=== PATIENT | female | born 1935 | race Caucasian/White ===

== ENCOUNTER 2016-03-18 11:35 | Emergency (ER) | payer OTHER ==
[~2016-03-18] VITALS: Ht 167.6 cm; Wt 65.9 kg
[~2016-03-18 11:35] MED LIST: AMLODIPINE PO; ATENOLOL100 MG PO; AZITHROMYCIN250 MG1 PO; B COMPLETE1 EACH PO; CHOLESTYRAMINE L4 GM PO; CILOSTAZOL50 MG PO; CLIMARA PRO PA1 EACH TD; CLIMARA0.05 MG TP; CLONAZEPAM0.5 MG PO; DURAGESIC1 EAC1 TD; FIORICET 50-321 EAC1 PO; FLOVENT 11120 INHALA IH; GABAPENTIN100 MG PO; GLUCOPHAGE500 MG PO; HYDRALAZINE HCL50 MG PO; HYOSCYAMINE0.125 M2 PO; LOSARTAN POTAS100 MG PO; METAXALONE800 MG PO; METFORMIN HCL500 MG PO; METHYLDOPA500 MG PO; NEXIUM20 MG PO; NEXIUM40 MG PO; OMEPRAZOLE40 M1 PO; PERCOCET 5/31 TABLET PO; PRILOSEC40 MG PO; RANITIDINE HCL300 MG PO; SPIRONOLACTONE25 MG PO; TRAMADOL PO; Tenormin PO; VENTOLIN HFA18 GM IH; VYTORIN PO; WELCHOL3.75 GM PO; ZOFRAN4 MG PO
[2016-03-18 11:53] VITALS: BP 135/75
[2016-03-18 12:46] LABS: BASOPHIL COUNT 0.1 K/uL (0-0.1); EOSINOPHIL (%) 2.7 % (0-5); EOSINOPHIL COUNT 0.2 K/uL (0-0.3); HEMATOCRIT 32.6 % (36.0-46.0); IMMATURE GRANULOCYTE (%) 0.4 % (0.0-0.7); IMMATURE GRANULOCYTE COUNT 0.3 K/uL; LYMPHOCYTE COUNT 1.7 K/uL (1.0-2.8); MCHC 31.9 G/DL (30.0-36.0); MCV 81.5 FL (83-99); MEAN PLAT.VOLUME 10.3 uM^3 (9.5-12.4); MONOCYTE (%) 6.7 % (3-12); MONOCYTE COUNT 0.5 K/uL (0-0.8); NEUTROPHIL (%) 68.2 % (45-76); NEUTROPHIL COUNT 5.4 K/uL (1.8-6.4); PLATELET COUNT 462 K/uL (156-360); RBC DIS.WIDTH-CV 14.5 % (11.8-14.6); RBC DIS.WIDTH-SD 41.7 % (39-53); WHITE BLOOD COUNT 7.9 K/uL (4.1-10.2)
[2016-03-18 12:55] LABS: CHLORIDE 107 mEq/L (99-109); POTASSIUM 4.8 mEq/L (3.7-5.4); SODIUM 134 mEq/L (136-147)
[2016-03-18 12:56] LABS: GLUCOSE 111 mg/dL (70-99)
[2016-03-18 12:58] LABS: ANION GAP 10 MEQ/L (2-14)
[2016-03-18 13:00] LABS: GFR ESTIMATE (CALCULATED) 26 mL/min/
[2016-03-18 13:01] LABS: UREA NITROGEN (BUN) 26 mg/dL (9-23)
== END 2016-03-18 17:38 | disposition home or self-care (01) ==
LOC: EME 11:35
PROVIDERS: Emergency Medicine
DX: E86.0 Dehydration (principal); S09.90XA Unspecified injury of head, initial encounter; M54.5 Low back pain; W18.30XA Fall on same level, unspecified, initial encounter; Y92.231 Patient bathroom in hospital as the place of occurrence of the external cause; Z79.82 Long term (current) use of aspirin; G89.29 Other chronic pain; Z79.891 Long term (current) use of opiate analgesic; I10 Essential (primary) hypertension; E11.9 Type 2 diabetes mellitus without complications; J45.909 Unspecified asthma, uncomplicated
CPT/HCPCS: 70450; 72100; 72131; 72192; 80048 91; 85025 91; 93005; 99281; 99285; J7030

== ENCOUNTER 2016-06-28 13:41 | Observation (INO) | payer OTHER ==
[~2016-06-28] VITALS: Ht 167.6 cm; Wt 74.1 kg
[2016-06-28 14:35] LABS: EOSINOPHIL (%) 1.1 % (0-5); EOSINOPHIL COUNT 0.1 K/uL (0-0.3); HEMATOCRIT 32.2 % (36.0-46.0); IMMATURE GRANULOCYTE (%) 0.3 % (0.0-0.7); INSTRUMENT ABS NEUTROPHIL CT 4.6 K/uL; LYMPHOCYTE COUNT 1.7 K/uL (1.0-2.8); MCHC 31.7 G/DL (30.0-36.0); MCV 85.2 FL (83-99); MEAN PLAT.VOLUME 10.3 uM^3 (9.5-12.4); MONOCYTE COUNT 0.8 K/uL (0-0.8); NEUTROPHIL (%) 64.1 % (45-76); NEUTROPHIL COUNT 4.6 K/uL (1.8-6.4); PLATELET COUNT 271 K/uL (156-360); RBC DIS.WIDTH-CV 13.5 % (11.8-14.6); RBC DIS.WIDTH-SD 42.2 % (39-53); RED BLOOD COUNT 3.78 M/uL (3.80-5.20); WHITE BLOOD COUNT 7.2 K/uL (4.1-10.2)
[2016-06-28 14:43] LABS: CHLORIDE 106 mEq/L (99-109); POTASSIUM 4.1 mEq/L (3.7-5.4); SODIUM 138 mEq/L (136-147)
[2016-06-28 14:45] LABS: GLUCOSE 104 mg/dL (70-99)
[2016-06-28 14:47] LABS: ANION GAP 8 MEQ/L (2-14)
[2016-06-28 14:48] LABS: D-DIMER ELISA 2.37 mg/L FEU (< 0.57); PROTHROMBIN TIME 10.4 (9.2-11.2); PTT 30.7 (25-32)
[2016-06-28 14:49] LABS: GFR ESTIMATE (CALCULATED) 27 mL/min/
[2016-06-28 14:50] LABS: UREA NITROGEN (BUN) 24 mg/dL (9-23)
[2016-06-28 14:57] LABS: TROP-I INTERPRETATION NEGATIVE; TROPONIN-I < 0.01 ng/mL (0.0-0.30)
[2016-06-28] MEDS ORDERED: ZINC-1566 MG PO (17:59)
[2016-06-28] MEDS ORDERED: LOSARTAN POTASS50 MG PO (18:02)
[2016-06-28] MEDS ORDERED: BYSTOLIC10 MG PO (18:03)
[2016-06-28] MEDS ORDERED: KENALOG,ARISTOC80 GM TP (18:04)
[2016-06-28] MEDS ORDERED: AMBIEN5 MG PO (18:05)
[2016-06-28] MEDS ORDERED: IRON325 MG PO (18:06)
[2016-06-28] MEDS ORDERED: PROTONIX40 MG PO (18:07)
[2016-06-28] MEDS ORDERED: 24 HOUR ALLER15.8 ML BOTH NARES (18:11)
[2016-06-28 21:17] LABS: CREATINE KINASE 26 IU/L (1-294); TOTAL CK 26 IU/L (1-294)
[2016-06-28 21:23] LABS: CK-MB 0.8 ng/mL (0.0-4.9)
[2016-06-28 21:29] LABS: TROP-I INTERPRETATION NEGATIVE; TROPONIN-I < 0.01 ng/mL (0.0-0.30)
[2016-06-28 21:50] VITALS: BP 190/74
[2016-06-28 22:45] VITALS: BP 186/88
[2016-06-29 00:30] VITALS: BP 172/72
[2016-06-29 04:13] VITALS: BP 156/89
[2016-06-29 06:23] LABS: HEMATOCRIT 32.8 % (36.0-46.0); MCH 26.8 PG (29.0-34.0); MCHC 31.7 G/DL (30.0-36.0); MCV 84.5 FL (83-99); MEAN PLAT.VOLUME 10.5 uM^3 (9.5-12.4); PLATELET COUNT 265 K/uL (156-360); RBC DIS.WIDTH-CV 13.4 % (11.8-14.6); RBC DIS.WIDTH-SD 41.9 % (39-53); RED BLOOD COUNT 3.88 M/uL (3.80-5.20); WHITE BLOOD COUNT 5.2 K/uL (4.1-10.2)
[2016-06-29 08:30] LABS: TROP-I INTERPRETATION NEGATIVE; TROPONIN-I < 0.01 ng/mL (0.0-0.30)
[2016-06-29 08:43] VITALS: BP 143/66
[2016-06-29 12:37] VITALS: BP 123/59
[2016-06-29] MEDS ORDERED: NITROSTAT0.4 MG SL (12:49)
[2016-06-29] MEDS ORDERED: ASPIR-LOW81 MG PO (12:49)
== END 2016-06-29 14:18 | disposition home or self-care (01) ==
LOC: EME 13:41 → 5WEST 20:07 → EDOF 20:07 → 5WEST 21:05
PROVIDERS: Emergency Medicine; Hospitalist; Internal Medicine Nephrology
DX: R07.89 Other chest pain (principal); R94.31 Abnormal electrocardiogram [ECG] [EKG]; R10.13 Epigastric pain; I73.9 Peripheral vascular disease, unspecified; I12.9 Hypertensive chronic kidney disease with stage 1 through stage 4 chronic kidney disease, or unspecified chronic kidney disease; N18.9 Chronic kidney disease, unspecified; D64.9 Anemia, unspecified; K44.9 Diaphragmatic hernia without obstruction or gangrene; K21.9 Gastro-esophageal reflux disease without esophagitis; E11.9 Type 2 diabetes mellitus without complications; J45.909 Unspecified asthma, uncomplicated; Z85.51 Personal history of malignant neoplasm of bladder; G43.909 Migraine, unspecified, not intractable, without status migrainosus
CPT/HCPCS: 71010; 78582; 80048; 82550 91; 82553; 84484; 85025; 85027; 85379; 85610; 85730; 93005; 99202; 99281; 99285; G0378; J1644

== ENCOUNTER 2016-08-05 14:27 | Inpatient (IN) | payer OTHER ==
[~2016-08-05] VITALS: Ht 167.6 cm; Wt 71.4 kg
[~2016-08-05 14:27] MED LIST changes: +24 HOUR ALLER15.8 ML BOTH NARES; +AMBIEN5 MG PO; +ASPIR-LOW81 MG PO; +BYSTOLIC10 MG PO; +IRON325 MG PO; +KENALOG,ARISTOC80 GM TP; +LOSARTAN POTASS50 MG PO; +NITROSTAT0.4 MG SL; +PROTONIX40 MG PO; +ZINC-1566 MG PO
[2016-08-05 15:13] LABS: HEMATOCRIT 29.1 % (36.0-46.0); MCH 26.6 PG (29.0-34.0); MCV 83.4 FL (83-99); MEAN PLAT.VOLUME 9.4 uM^3 (9.5-12.4); PLATELET COUNT 466 K/uL (156-360); RBC DIS.WIDTH-CV 13.4 % (11.8-14.6); RBC DIS.WIDTH-SD 41.1 % (39-53); RED BLOOD COUNT 3.49 M/uL (3.80-5.20); WHITE BLOOD COUNT 14.4 K/uL (4.1-10.2)
[2016-08-05 15:21] LABS: CHLORIDE 103 mEq/L (99-109); POTASSIUM 4.1 mEq/L (3.7-5.4)
[2016-08-05 15:23] LABS: GLUCOSE 280 mg/dL (70-99)
[2016-08-05 15:24] LABS: ANION GAP 9 MEQ/L (2-14)
[2016-08-05 15:27] LABS: GFR ESTIMATE (CALCULATED) 21 mL/min/; UREA NITROGEN (BUN) 30 mg/dL (9-23)
[2016-08-05 15:33] LABS: TROP-I INTERPRETATION NEGATIVE; TROPONIN-I < 0.01 ng/mL (0.0-0.30)
[2016-08-05 15:51] LABS: SODIUM 131 mEq/L (136-147)
[2016-08-05] MEDS ORDERED: LO-DOSE ASPIRIN81 M2 PO (19:23)
[2016-08-05] MEDS ORDERED: ZINC50 M1 PO (19:24)
[2016-08-05] MEDS ORDERED: ZINC30 MG PO (19:25)
[2016-08-05] MEDS ORDERED: CYANOCOBAL1000 MCG/2 IM (19:27)
[2016-08-05] MEDS ORDERED: ALBUTEROL2.5 MG/3 M IH (19:33)
[2016-08-05] MEDS ORDERED: hydrocodone PO (19:35)
[2016-08-05] MEDS ORDERED: VALACYCLOVIR1000 MG PO (19:37)
[2016-08-05 23:02] VITALS: BP 121/60
[2016-08-05 23:58] LABS: ADD MIUA? YES; BILIRUBIN NEGATIVE; BLOOD NEGATIVE; COLOR YELLOW ((YELLOW)); GLUCOSE (STRIP) NEGATIVE; KETONES NEGATIVE; LEUKOCYTES NEGATIVE; NITRITE NEGATIVE; PROTEIN (STRIP) NEGATIVE; SPECIFIC GRAVITY 1.004 (1.000-1.030); UROBILINOGEN 0.2 MG/DL (0.2-1.0)
[2016-08-06 00:08] LABS: BACTERIA RARE /HPF; EPITHELIAL CELLS 1+ /HPF; MUCUS TRACE /LPF; RED BLOOD CELLS 0-5 /HPF (0-5); UCUL ADDED? NO; WHITE BLOOD CELLS 0-5 /HPF (0-5)
[2016-08-06 04:41] VITALS: BP 125/58
[2016-08-06 06:08] LABS: EOSINOPHIL (%) 1.2 % (0-5); EOSINOPHIL COUNT 0.1 K/uL (0-0.3); HEMATOCRIT 26.2 % (36.0-46.0); IMMATURE GRANULOCYTE (%) 0.4 % (0.0-0.7); LYMPHOCYTE COUNT 1.9 K/uL (1.0-2.8); MCH 27.2 PG (29.0-34.0); MCHC 32.4 G/DL (30.0-36.0); MEAN PLAT.VOLUME 9.2 uM^3 (9.5-12.4); MONOCYTE COUNT 0.7 K/uL (0-0.8); PLATELET COUNT 415 K/uL (156-360); RBC DIS.WIDTH-CV 13.5 % (11.8-14.6); RBC DIS.WIDTH-SD 41.3 % (39-53); RED BLOOD COUNT 3.12 M/uL (3.80-5.20); WHITE BLOOD COUNT 7.8 K/uL (4.1-10.2)
[2016-08-06 06:33] LABS: ANION GAP 8 MEQ/L (2-14); CHLORIDE 107 MEQ/L (99-109); GFR ESTIMATE (CALCULATED) 26 mL/min/; POTASSIUM 4.3 MEQ/L (3.7-5.4); SAMPLE HEMOLYSIS CHECK 0; SAMPLE ICTERIC CHECK 0; SAMPLE LIPEMIA CHECK 0; SODIUM 137 MEQ/L (136-147); UREA NITROGEN (BUN) 29 mg/dL (9-23)
[2016-08-06 06:38] LABS: GLUCOSE 103 mg/dL (70-99)
[2016-08-06 07:05] LABS: ERTH.SED.RATE 58 MM/HR (0-30)
[2016-08-06 07:51] LABS: INTERNAL CONTROL VALID? YES
[2016-08-06 08:01] VITALS: BP 121/59
[2016-08-06 09:48] LABS: D-DIMER ELISA > 4.00 mg/L FEU (< 0.57)
[2016-08-06 10:35] LABS: TROP-I INTERPRETATION NEGATIVE; TROPONIN-I < 0.01 ng/mL (0.0-0.30)
[2016-08-06 16:18] VITALS: BP 124/62
[2016-08-06 20:00] VITALS: BP 120/58
[2016-08-07] VITALS (8 sets, daily range): BP systolic 80–131; BP diastolic 43–84
[2016-08-07 06:03] LABS: HEMATOCRIT 26.2 % (36.0-46.0); MCH 27.4 PG (29.0-34.0); MCHC 32.1 G/DL (30.0-36.0); MCV 85.3 FL (83-99); MEAN PLAT.VOLUME 9.5 uM^3 (9.5-12.4); PLATELET COUNT 444 K/uL (156-360); RBC DIS.WIDTH-CV 13.6 % (11.8-14.6); RED BLOOD COUNT 3.07 M/uL (3.80-5.20); WHITE BLOOD COUNT 7.6 K/uL (4.1-10.2)
[2016-08-07 06:39] LABS: ANION GAP 7 MEQ/L (2-14); CHLORIDE 108 MEQ/L (99-109); GFR ESTIMATE (CALCULATED) 27 mL/min/; GLUCOSE 104 mg/dL (70-99); POTASSIUM 4.4 MEQ/L (3.7-5.4); SAMPLE HEMOLYSIS CHECK 0; SAMPLE ICTERIC CHECK 0; SAMPLE LIPEMIA CHECK 0; SODIUM 137 MEQ/L (136-147); UREA NITROGEN (BUN) 28 mg/dL (9-23)
[2016-08-07] MEDS ORDERED: VALIUM2 MG PO (11:08)
[2016-08-07] MEDS ORDERED: ALBUTEROL2.5 MG/3 M IH (11:08)
[2016-08-07] MEDS ORDERED: DOXYCYCLINE HY100 MG PO (11:08)
[2016-08-07] MEDS ORDERED: VENTOLIN HFA18 GM IH (11:08)
[2016-08-07 13:10] LABS: HEMATOCRIT 25.7 % (36.0-46.0); MCV 84.8 FL (83-99)
[2016-08-07 16:51] LABS: HEMATOCRIT 24.4 % (36.0-46.0); MCV 85.3 FL (83-99)
[2016-08-08 00:31] LABS: HEMATOCRIT 24.6 % (36.0-46.0)
[2016-08-08 03:36] VITALS: BP 103/61
[2016-08-08 06:11] LABS: HEMATOCRIT 25.1 % (36.0-46.0); MCH 26.9 PG (29.0-34.0); MCHC 31.5 G/DL (30.0-36.0); MCV 85.4 FL (83-99); MEAN PLAT.VOLUME 9.3 uM^3 (9.5-12.4); PLATELET COUNT 448 K/uL (156-360); RBC DIS.WIDTH-CV 13.5 % (11.8-14.6); RBC DIS.WIDTH-SD 41.5 % (39-53); RED BLOOD COUNT 2.94 M/uL (3.80-5.20); WHITE BLOOD COUNT 6.2 K/uL (4.1-10.2)
[2016-08-08 06:42] LABS: ANION GAP 8 MEQ/L (2-14); CHLORIDE 111 MEQ/L (99-109); GFR ESTIMATE (CALCULATED) 26 mL/min/; GLUCOSE 107 mg/dL (70-99); IRON 14 MCG/DL (35-150); POTASSIUM 5.1 MEQ/L (3.7-5.4); SAMPLE HEMOLYSIS CHECK 0; SAMPLE ICTERIC CHECK 0; SAMPLE LIPEMIA CHECK 0; SODIUM 140 MEQ/L (136-147); UREA NITROGEN (BUN) 26 mg/dL (9-23)
[2016-08-08 07:48] LABS: FERRITIN 179 NG/ML (10-291)
[2016-08-08 07:50] VITALS: BP 125/60
[2016-08-08 11:03] LABS: HEMATOCRIT 26.5 % (36.0-46.0)
[2016-08-08 11:16] VITALS: BP 110/53
[2016-08-08] MEDS ORDERED: ALDOMET250 MG PO (13:29)
== END 2016-08-08 15:26 | disposition home health service (06) | DRG 194 ==
LOC: EME 14:27 → 5SOUTH 20:23 → EDOF 20:23 → 5SOUTH 20:23
PROVIDERS: Hospitalist; Physician Assistant Medical
DX: J13 Pneumonia due to Streptococcus pneumoniae (principal); J90 Pleural effusion, not elsewhere classified; N17.9 Acute kidney failure, unspecified; I95.9 Hypotension, unspecified; E11.22 Type 2 diabetes mellitus with diabetic chronic kidney disease; B02.9 Zoster without complications; D64.9 Anemia, unspecified; E86.0 Dehydration; N18.3 Chronic kidney disease, stage 3 (moderate); R71.0 Precipitous drop in hematocrit; F41.9 Anxiety disorder, unspecified; G44.89 Other headache syndrome; I12.9 Hypertensive chronic kidney disease with stage 1 through stage 4 chronic kidney disease, or unspecified chronic kidney disease; I20.9 Angina pectoris, unspecified; I73.9 Peripheral vascular disease, unspecified; J45.909 Unspecified asthma, uncomplicated; J98.11 Atelectasis; K21.9 Gastro-esophageal reflux disease without esophagitis; Z82.49 Family history of ischemic heart disease and other diseases of the circulatory system; Z85.51 Personal history of malignant neoplasm of bladder; Z85.828 Personal history of other malignant neoplasm of skin; G89.29 Other chronic pain; Z63.4 Disappearance and death of family member; R00.0 Tachycardia, unspecified
CPT/HCPCS: 36415; 70450; 71020; 78582; 80048; 80053; 81003; 82272; 82607; 82728; 82746; 83540; 84466; 84484; 84630 90; 85014; 85018; 85025; 85027; 85379; 85651; 87040; 87070; 87205; 87449; 93005; 93970; 94640; 94640 76; 94667; 94668; 99202; 99281; 99285; A9540; A9567; J0456; J0696; J1644; J7030; J7050

== ENCOUNTER 2017-02-06 08:35 | Emergency (ER) | payer OTHER ==
[~2017-02-06] VITALS: Ht 167.6 cm; Wt 71.5 kg
[~2017-02-06 08:35] MED LIST changes: +ALBUTEROL2.5 MG/3 M IH; +ALDOMET250 MG PO; +CYANOCOBAL1000 MCG/2 IM; +DOXYCYCLINE HY100 MG PO; +LO-DOSE ASPIRIN81 M2 PO; +VALACYCLOVIR1000 MG PO; +VALIUM2 MG PO; +ZINC30 MG PO; +ZINC50 M1 PO; +hydrocodone PO
[2017-02-06 09:38] LABS: EOSINOPHIL (%) 2.6 % (0-5); EOSINOPHIL COUNT 0.2 K/uL (0-0.3); HEMATOCRIT 37.1 % (36.0-46.0); IMMATURE GRANULOCYTE (%) 0.4 % (0.0-0.7); INSTRUMENT ABS NEUTROPHIL CT 5.1 K/uL; LYMPHOCYTE COUNT 1.1 K/uL (1.0-2.8); MCH 28.6 PG (29.0-34.0); MCHC 32.6 G/DL (30.0-36.0); MCV 87.7 FL (83-99); MEAN PLAT.VOLUME 10.2 uM^3 (9.5-12.4); MONOCYTE COUNT 0.6 K/uL (0-0.8); NEUTROPHIL (%) 72.2 % (45-76); NEUTROPHIL COUNT 5.1 K/uL (1.8-6.4); PLATELET COUNT 282 K/uL (156-360); RBC DIS.WIDTH-CV 13.5 % (11.8-14.6); RBC DIS.WIDTH-SD 43.4 % (39-53); RED BLOOD COUNT 4.23 M/uL (3.80-5.20)
[2017-02-06 09:49] LABS: CHLORIDE 106 mEq/L (99-109); SODIUM 140 mEq/L (136-147)
[2017-02-06 09:51] LABS: GLUCOSE 100 mg/dL (70-99)
[2017-02-06 09:52] LABS: ANION GAP 8 MEQ/L (2-14)
[2017-02-06 09:53] LABS: TOTAL BILIRUBIN 0.7 mg/dL (0.0-1.0)
[2017-02-06 09:55] LABS: ALKALINE PHOSPHATASE 69 IU/L (3-129); GFR ESTIMATE (CALCULATED) 27 mL/min/
[2017-02-06 09:56] LABS: UREA NITROGEN (BUN) 12 mg/dL (9-23)
[2017-02-06 09:58] LABS: LIPASE 14 U/L (1.0-51.0)
[2017-02-06 11:07] LABS: ADD MIUA? YES; BILIRUBIN NEGATIVE; BLOOD SMALL; COLOR STRAW ((YELLOW)); GLUCOSE (STRIP) NEGATIVE; KETONES NEGATIVE; LEUKOCYTES NEGATIVE; NITRITE NEGATIVE; PROTEIN (STRIP) NEGATIVE; SPECIFIC GRAVITY 1.005 (1.000-1.030); UROBILINOGEN 0.2 MG/DL (0.2-1.0)
[2017-02-06 11:15] LABS: BACTERIA NONE SEEN /HPF; EPITHELIAL CELLS 1+ /HPF; HYALINE CASTS 0-5 /LPF; MUCUS TRACE /LPF; RED BLOOD CELLS 0-5 /HPF (0-5); UCUL ADDED? NO; WHITE BLOOD CELLS 0-5 /HPF (0-5)
[2017-02-06] MEDS ORDERED: ZOFRAN4 MG PO (14:19)
[2017-02-06] MEDS ORDERED: NORCO 5/3251 TABLET PO (14:19)
[2017-02-06 14:31] VITALS: BP 192/67
== END 2017-02-06 14:31 | disposition home or self-care (01) ==
LOC: EME 08:35
PROVIDERS: Emergency Medicine
DX: K57.32 Diverticulitis of large intestine without perforation or abscess without bleeding (principal); N18.9 Chronic kidney disease, unspecified; K21.9 Gastro-esophageal reflux disease without esophagitis; I12.9 Hypertensive chronic kidney disease with stage 1 through stage 4 chronic kidney disease, or unspecified chronic kidney disease; J45.909 Unspecified asthma, uncomplicated; F41.9 Anxiety disorder, unspecified; Z79.82 Long term (current) use of aspirin; Z87.19 Personal history of other diseases of the digestive system; Z95.810 Presence of automatic (implantable) cardiac defibrillator; Z96.652 Presence of left artificial knee joint; Z95.820 Peripheral vascular angioplasty status with implants and grafts; Z90.710 Acquired absence of both cervix and uterus; Z90.49 Acquired absence of other specified parts of digestive tract; Z90.89 Acquired absence of other organs; Z88.2 Allergy status to sulfonamides; Z88.5 Allergy status to narcotic agent; Z88.8 Allergy status to other drugs, medicaments and biological substances; Z91.041 Radiographic dye allergy status
CPT/HCPCS: 74176; 80053; 81003; 83605; 83690; 85025; J1885; J7030

== ENCOUNTER 2017-08-14 16:04 | Emergency (ER) | payer OTHER ==
[~2017-08-14] VITALS: Ht 167.6 cm; Wt 74.5 kg
[~2017-08-14 16:04] MED LIST changes: +LIDOCAINE HCL35 GM TP; +NORCO 5/3251 TABLET PO; +VITAMIN B122500 MCG PO
[2017-08-14 16:34] LABS: HEMATOCRIT 37.6 % (36.0-46.0); HEMOGLOBIN 12.5 G/DL (11.9-15.5); MCH 29.9 PG (29.0-34.0); MCHC 33.2 G/DL (30.0-36.0); PLATELET COUNT 288 K/uL (156-360); RBC DIS.WIDTH-CV 12.8 % (11.8-14.6); RBC DIS.WIDTH-SD 42.4 % (39-53); RED BLOOD COUNT 4.18 M/uL (3.80-5.20); WHITE BLOOD COUNT 9.4 K/uL (4.1-10.2)
[2017-08-14 16:43] LABS: ALBUMIN 3.5 g/dL (3.2-4.8); CHLORIDE 106 mEq/L (99-109); POTASSIUM 4.5 mEq/L (3.7-5.4); SODIUM 139 mEq/L (136-147)
[2017-08-14 16:45] LABS: GLUCOSE 93 mg/dL (70-99)
[2017-08-14 16:46] LABS: TOTAL PROTEIN 6.2 g/dL (6.4-8.3)
[2017-08-14 16:47] LABS: TOTAL BILIRUBIN 0.6 mg/dL (0.0-1.0)
[2017-08-14 16:49] LABS: ALKALINE PHOSPHATASE 58 IU/L (3-129); CREATININE 1.6 mg/dL (0.6-1.3); GFR ESTIMATE (CALCULATED) 33 mL/min/
[2017-08-14 16:50] LABS: UREA NITROGEN (BUN) 23 mg/dL (9-23)
[2017-08-14 16:51] LABS: AST (GOT) 12 IU/L (2-34)
[2017-08-14 16:52] LABS: ALT (GPT) 10 IU/L (3-49)
[2017-08-14 17:12] LABS: LIPASE 21 U/L (1.0-51.0)
[2017-08-14 18:51] LABS: APPEARANCE CLEAR ((CLEAR)); BILIRUBIN NEGATIVE; BLOOD NEGATIVE; COLOR STRAW ((YELLOW)); GLUCOSE (STRIP) NEGATIVE; KETONES NEGATIVE; LEUKOCYTES NEGATIVE; NITRITE NEGATIVE; PROTEIN (STRIP) NEGATIVE; SPECIFIC GRAVITY 1.004 (1.000-1.030); UCUL ADDED? NO; UROBILINOGEN 0.2 MG/DL (0.2-1.0)
[2017-08-14] MEDS ORDERED: FLAGYL500 MG PO (21:41)
[2017-08-14] MEDS ORDERED: BENTYL20 MG PO (21:41)
[2017-08-14] MEDS ORDERED: LEVAQUIN500 MG PO (21:41)
[2017-08-14 21:56] VITALS: BP 155/60
== END 2017-08-14 22:08 | disposition home or self-care (01) ==
LOC: EME 16:04
DX: K57.32 Diverticulitis of large intestine without perforation or abscess without bleeding (principal); I12.9 Hypertensive chronic kidney disease with stage 1 through stage 4 chronic kidney disease, or unspecified chronic kidney disease; E11.22 Type 2 diabetes mellitus with diabetic chronic kidney disease; N18.9 Chronic kidney disease, unspecified; J45.909 Unspecified asthma, uncomplicated; K21.9 Gastro-esophageal reflux disease without esophagitis; Z79.82 Long term (current) use of aspirin; Z88.2 Allergy status to sulfonamides; Z88.8 Allergy status to other drugs, medicaments and biological substances; Z91.041 Radiographic dye allergy status
CPT/HCPCS: 74176; 80053; 81003; 83605; 83690; 85027; 99281; 99284; J2405; J3010; J7030